=== PATIENT | female | born 1975 | race Caucasian/White ===

== ENCOUNTER 2017-08-31 14:24 | Emergency (ER) | payer OTHER, MEDICAID ==
[~2017-08-31] VITALS: Ht 154.9 cm; Wt 49.9 kg
[2017-08-31] MEDS ORDERED: NORCO 5-325 TA1 EACH PO (15:08)
[2017-08-31] MEDS ORDERED: IBUPROFEN 600600 M1 PO (15:08)
[2017-08-31] MEDS ORDERED: AMOXICILLIN 50500 MG PO (15:08)
[2017-08-31 15:18] VITALS: BP 112/71
== END 2017-08-31 15:18 | disposition home or self-care (01) ==
LOC: M.ERS 14:24
DX: K04.7 Periapical abscess without sinus (principal)